=== PATIENT | female | born 1975 | race Caucasian/White ===

== ENCOUNTER → 2016-09-12 | Outpatient (CLI) | payer OTHER ==
[~2016-09-12] MED LIST: ALPRAZOLAM0.25 M1 PO; CELEXA 20MG20 MG/TA1 PO; GABAPENTIN100 MG PO; ONDANSETRON HYDR8 MG PO; PHENERGAN 25 TA25 MG PO; PRILOSEC 20MG20 MG PO; REGLAN10 M2 PO; WELCHOL3.75 GM/Pa PO; [UNRECOGNIZED DRUG - OTHER] PO
== END ==
LOC: RAD 16:43
DX: R05 Cough (principal); R06.02 Shortness of breath

== ENCOUNTER → 2016-12-16 | Outpatient (CLI) | payer OTHER | LOC: LAB 15:16 | DX: R50.9 Fever, unspecified (principal); R51 Headache; R59.0 Localized enlarged lymph nodes; R53.81 Other malaise ==

== ENCOUNTER → 2017-01-03 | Outpatient (CLI) | payer OTHER | LOC: LAB 10:27 | DX: N30.01 Acute cystitis with hematuria (principal); R30.0 Dysuria ==

== ENCOUNTER 2017-02-22 15:24 | Emergency (ER) | payer OTHER ==
[~2017-02-22] VITALS: Ht 162.6 cm; Wt 49.1 kg
[2017-02-22] MEDS ORDERED: GABAPENTIN100 MG PO (15:45)
[2017-02-22] MEDS ORDERED: ONDANSETRON HYDR8 MG PO (15:46)
[2017-02-22] MEDS ORDERED: [UNRECOGNIZED DRUG - OTHER] PO (15:46)
[2017-02-22] MEDS ORDERED: REGLAN10 M2 PO (15:47)
[2017-02-22] MEDS ORDERED: ALPRAZOLAM0.25 M1 PO (15:48)
[2017-02-22] MEDS ORDERED: PHENERGAN 25 TA25 MG PO (15:48)
[2017-02-22] MEDS ORDERED: CELEXA 20MG20 MG/TA1 PO (15:50)
[2017-02-22] MEDS ORDERED: PRILOSEC 20MG20 MG PO (16:26)
[2017-02-22] MEDS ORDERED: WELCHOL3.75 GM/Pa PO (16:27)
[2017-02-22 19:04] VITALS: BP 110/63
== END 2017-02-22 19:04 | disposition home or self-care (01) ==
LOC: ED 15:24
DX: R11.0 Nausea (principal); F41.9 Anxiety disorder, unspecified; R19.8 Other specified symptoms and signs involving the digestive system and abdomen; G25.81 Restless legs syndrome
CPT/HCPCS: J2405; J7030

== ENCOUNTER → 2017-02-26 | Outpatient (CLI) | payer OTHER ==
[~2017-02-26] VITALS: Ht 162.6 cm; Wt 49.1 kg
[2017-02-26 17:51] VITALS: BP 113/76
[2017-02-26 19:30] VITALS: BP 122/77
== END ==
LOC: AMSURD 16:42
DX: R10.13 Epigastric pain (principal); R11.0 Nausea; E86.0 Dehydration
CPT/HCPCS: J2405; J7030

== ENCOUNTER → 2017-06-08 | Outpatient (CLI) | payer OTHER ==
[2017-02-26 19:30] VITALS: BP 122/77
== END ==
LOC: LAB 13:31
DX: N30.01 Acute cystitis with hematuria (principal)

== ENCOUNTER → 2017-07-20 | Outpatient (CLI) | payer OTHER ==
[2017-02-26 19:30] VITALS: BP 122/77
== END ==
LOC: RAD 14:20
PROVIDERS: Nurse Practitioner Family
DX: R07.9 Chest pain, unspecified (principal); M54.6 Pain in thoracic spine; F41.1 Generalized anxiety disorder; R00.2 Palpitations; R61 Generalized hyperhidrosis

== ENCOUNTER → 2017-08-12 | Outpatient (CLI) | payer OTHER ==
[2017-02-26 19:30] VITALS: BP 122/77
[2017-08-12 17:20] LABS: EOS # 0.2 (0.04-0.40); EOS % 2.1 % (1.0-5.0); HEMATOCRIT 41.7 % (37.0-47.0); HEMOGLOBIN 13.7 g/dL (12.5-16.0); LYMPH# 1.6 (1.50-4.00); MEAN CELL VOLUME 95 fl (78-100); MEAN CORPUSCULAR HEMOGLOBIN 31 pg (27-31); MEAN CORPUSCULAR HGB CONC 33 g/dL (33-37); MEAN PLATELET VOLUME 10.9 fl (7.4-10.4); MONO # 0.6 (0.20-0.80); NEU # 5.8 (1.40-6.50); PLATELET COUNT 235 K/mm3 (130-400); RED BLOOD COUNT 4.41 M/mm3 (4.10-5.30); RED CELL DISTRIBUTION WIDTH 12.2 % (11.5-14.5); WHITE BLOOD COUNT 8.2 K/mm3 (4.8-10.8)
[2017-08-12 17:46] LABS: URINE APPEARANCE HAZY; URINE COLOR YELLOW
[2017-08-12 17:47] LABS: ALBUMIN 4.4 g/dL (3.5-5.0); BUN/CREATININE RATIO 18.5 (6.0-26.0); CALCIUM 9.9 mg/dL (8.4-10.2); TOTAL BILIRUBIN 0.5 mg/dL (0.2-1.3); TOTAL PROTEIN 7.6 g/dL (6.3-8.2); URINE BILIRUBIN NEGATIVE (NEGATIVE); URINE GLUCOSE NEGATIVE (NEGATIVE); URINE KETONE NEGATIVE (NEGATIVE); URINE LEUKOCYTE ESTERASE NEGATIVE (NEGATIVE); URINE NITRATE NEGATIVE (NEGATIVE); URINE PROTEIN(semi-quant) NEGATIVE (NEGATIVE); URINE UROBILINOGEN NORMAL (NORMAL); URINE WBC 0-1 /hpf (0-3)
[2017-08-12 17:50] LABS: URINE BLOOD 250 ery/uL (NEGATIVE)
[2017-08-12 18:37] LABS: ERYTHROCYTE SEDIMENTATION RATE 7 mm/hr (0-20)
[2017-08-13 10:09] LABS: C-REACTIVE PROTEIN XXX
[2017-08-13 23:41] LABS: ANA SCREEN with REFLEX Negative (Negative)
== END ==
LOC: LAB 16:43
PROVIDERS: Nurse Practitioner Family
DX: M79.1 Myalgia (principal); M25.50 Pain in unspecified joint; R53.81 Other malaise

== ENCOUNTER → 2017-09-02 | Outpatient (CLI) | payer OTHER ==
[2017-02-26 19:30] VITALS: BP 122/77
[2017-09-03 00:36] LABS: FOLATE (FOLIC ACID) >20.0 ng/mL (7.0-31.4)
== END ==
LOC: LAB 14:47
PROVIDERS: Nurse Practitioner Family
DX: M79.1 Myalgia (principal); M25.50 Pain in unspecified joint; R53.81 Other malaise

== ENCOUNTER → 2017-09-09 | Outpatient (CLI) | payer OTHER ==
[2017-02-26 19:30] VITALS: BP 122/77
== END ==
LOC: LAB 13:39
DX: M79.1 Myalgia (principal); M25.50 Pain in unspecified joint; R53.81 Other malaise